=== PATIENT | male | born 1955 | race Caucasian/White ===

== ENCOUNTER 2018-02-25 14:55 | Observation (INO) | payer OTHER ==
[2018-02-25] MEDS ORDERED: ONDANSETRON 4 MG/2 ML VIAL IV PRN (15:45)
[2018-02-25] MEDS ORDERED: ZOLPIDEM TARTRATE 10 MG TABLET PO PRN (15:51)
[2018-02-25] MEDS ORDERED: MORPHINE 4 MG/ML SYR IV SCH (16:00)
[2018-02-25 17:07] LABS: Absolute Lymphocytes (CBC) 1.7 K/uL (0.7-4.9); Absolute Monocytes 0.6 K/uL (0.1-1.3); Absolute Neutrophil 4.4 K/uL (1.8-8.0); Eosinophils % 3.8 % (0-4.4); Lymphocytes % 24.5 % (15.3-44.8); MCH 31.3 pg (27.0-35.0); MCV 93.7 fL (80-100); MPV 6.9 fL (7.6-11.3); Monocytes % 8.5 % (3.3-12.3); RBC Red Blood Cell Count 3.95 M/uL (4.33-5.43)
[2018-02-25 17:27] LABS: Potassium 4.4 mmol/L (3.5-5.1)
[2018-02-25] MEDS: METHYLPREDNISOLONE 125 MG INJ IV SCH (17:52)
[2018-02-25] MEDS: METHOCARBAMOL 1,000 MG in NA CHLORIDE 0.9% 100 ML IV SCH (18:01)
[2018-02-25 20:37] LABS: Urine Appearance CLEAR; Urine Bilirubin NEGATIVE (NEG); Urine Blood NEGATIVE (NEG); Urine Color YELLOW; Urine Glucose NEGATIVE (NEG); Urine Protein NEGATIVE (NEG); Urine Urobilinogen 0.2 mg/dL (0.2-1.0)
[2018-02-25] MEDS: MORPHINE 4 MG/ML SYR IV PRN (20:47)
[2018-02-25 20:57] LABS: Urine Microscopic Reflex NO UMIC
--- NOTE | 2018-02-25 23:10 | RAD REPORT ---
EXAM DESCRIPTION: MRI - Spine Lumbar W/Wo Cont- 02/25/2018 9:57 pm CLINICAL HISTORY: back pain Radiculopathy. History of surgery. COMPARISON: No comparisons FINDINGS: Vertebral body heights are within normal limits. No aggressive marrow pattern is observed. No fracture is suspected. The conus medullaris terminates at a normal level. No thickening of the cauda equina or clumping of n erve roots seen. L1-2 level: Posterior disc bulge is present with extrusion of disc material seen along the right para central location extending in an inferior subligamentous fashion. Mild central canal narrowing is pre sent. Mild facet hypertrophy seen. No significant exit foraminal narrowing. L2-3 level: Moderate posterior disc bulge is present resulting in moderate central canal narrowing. N o significant exit foraminal stenosis. L3-4 level: Mild posterior disc bulge with central posterior annular fissure. Mild facet and ligament um flavum hypertrophy is seen. Mild central canal narrowing is present. L4-5 level: Broad-based posterior disc bulge is present with small central disc protrusion. Moderate facet and ligamentum flavum hypertrophy results in moderate central canal narrowing to 8 mm with narr owing of both lateral recesses. Postsurgical changes are present at this level of laminectomy with en hancing scar tissue present posteriorly. Both exit foramina are mildly narrowed. L5-S1 level: Posterior disc bulge with left paracentral disc protrusion identified. Mild facet hypert rophy is present bilaterally with mild narrowing the left exit foramen. Prominent epidural lipomatosi s is seen with moderate central canal narrowing evident. No areas of post-contrast enhancement worrisome for tumor or infection. Marked atrophy of left kidney seen. IMPRESSION: Moderately severe multilevel spondylosis of the lumbar spine is present as detailed harley hardin
[2018-02-26] MEDS: METHOCARBAMOL 1,000 MG in NA CHLORIDE 0.9% 100 ML IV SCH ×3 (00:09→16:20)
[2018-02-26] MEDS: METHYLPREDNISOLONE 125 MG INJ IV SCH ×3 (00:11→16:20)
[2018-02-26] MEDS: MORPHINE 4 MG/ML SYR IV PRN (07:32)
[2018-02-26] MEDS ORDERED: hydroCHLOROthiazide 12.5 MG CAP PO SCH (09:00)
[2018-02-26] MEDS ORDERED: LISINOPRIL 10 MG TAB PO SCH (09:00)
--- NOTE | 2018-02-26 21:23 | SS ---
Date of Discharge: 02/26/2018 The patient was admitted to the hospital on 02/25 for treatment of severe back pain, which had become increasingly incapacitating. He had difficulty getting out of chair or bed. The pain was mainly in the lumbosacral area with some radiation down on the right side. The patient then had prior surgery with disk disease approximately 10 years ago and was doing relatively okay until the past year when he had some discomfort; however, over the past few weeks, it has become progressively worse including with radiation down the leg and was seen in the office. He was obviously incapacitated to an extent that he felt he needed some relief. He was therefore admitted, given morphine IV, placed on steroid s IV, muscle relaxant IV, and he said within 12 hours he felt much better. By the time he got his th ird steroid dose, the pain had gone down from a 10 to a 5. He also could get out of bed p roblems. The MRI did show significant disk disease. This will be relayed to the neurosurgeon who di d the original surgery the next day after being discharged for followup for possible surgical procedu re. He will continue on analgesics on a p.r.n. basis at home. Final Diagnoses: Acute herniated disk, low back syndrome, hypertension, controlled. HR/MODL Voice ID: [id number] Report ID: [id number]
== END 2018-02-26 17:05 | disposition home or self-care (01) ==
LOC: 2ND 15:24
PROVIDERS: ADMIT Family Medicine; ATTEND Family Medicine
DX: M51.26 Other intervertebral disc displacement, lumbar region (principal); I10 Essential (primary) hypertension; Z88.0 Allergy status to penicillin
CPT/HCPCS: 36415; 72158; 80048; 81003; 85025; A9577; G0378; J2800; J2930